=== PATIENT | female | born 1975 | race Caucasian/White ===

== ENCOUNTER 2021-04-01 22:53 | Inpatient (IN) | payer OTHER ==
[~2021-04-01] VITALS: Ht 162.6 cm; Wt 62.9 kg
[~2021-04-01 22:53] MED LIST: BACTRIM DS TAB1 EACH PO; CIPROFLOXACIN500 M1 PO; LEXAPRO 10 MG T10 M1; LORTAB 5 MG/5001 TAB PO; PYRIDIUM200 MG PO
[2021-04-01 22:55] VITALS: BP 136/91
[2021-04-01 23:33] LABS: URINE BILIRUBIN NEGATIVE (Negative); URINE BLOOD 2+ (Negative); URINE CLARITY CLEAR; URINE COLOR YELLOW; URINE GLUCOSE-RANDOM NEGATIVE (Negative); URINE KETONES NEGATIVE (Negative); URINE LEUKOCYTES-REFLEX NEGATIVE (Negative); URINE NITRITE-REFLEX NEGATIVE (Negative); URINE PROTEIN 1+ (Negative); URINE UROBILINOGEN 0.2 E.U./dl (0.2-1.0)
[2021-04-01 23:36] LABS: AMP/METHAMP Negative (Negative); BARBITURATES Negative (Negative); BENZODIAZEPINES Negative (Negative); COCAINE Negative (Negative); METHADONE Negative (Negative); OPIATES Negative (Negative); PCP Negative (Negative); THC Negative (Negative)
[2021-04-01 23:37] LABS: ABSOLUTE BASOPHILS 0.1 thou/uL (0.0-0.2); ABSOLUTE LYMPHOCYTES 2.6 thou/uL (0.8-5.3); ABSOLUTE MONOCYTES 0.4 thou/uL (0.0-1.2); ABSOLUTE NEUTROPHILS 4.6 thou/uL (1.6-8.1); BASOPHILS 1.2 %; EOSINOPHILS 0.1 %; HEMATOCRIT 42.7 % (37.0-47.0); HEMOGLOBIN 14.9 gm/dL (12.0-15.0); LYMPHOCYTES 33.7 %; MCH 34.9 pg (26.0-34.0); MCHC 34.9 g/dL (28.0-37.0); MCV 99.9 fL (80.0-100.0); MONOCYTES 5.7 %; MPV 5.8 fl. (7.2-11.1); NUCLEATED RBCS 0 /100WBC; PLATELET COUNT* 500 thou/uL (150-400); POLYS 59.3 %; RBC 4.28 mil/uL (4.20-5.00); WBC 7.7 thou/uL (4.0-11.0)
[2021-04-01 23:54] LABS: CREATININE 0.8 mg/dL (0.6-1.3); POTASSIUM 3.5 mmol/L (3.5-5.1)
[2021-04-02 00:04] LABS: ALBUMIN 3.8 g/dL (3.4-5.0); TOTAL BILIRUBIN 0.4 mg/dL (<0.1-1.0); TOTAL PROTEIN 8.2 g/dL (6.4-8.2)
[2021-04-02 00:16] LABS: CASTS None Seen /LPF (None Seen); SQUAMOUS 0-3 Few /LPF (0-3)
[2021-04-02 00:17] LABS: BACTERIA-REFLEX >30 Many /HPF (None Seen); CRYSTALS None Seen /LPF (None Seen); URINE RBC 0-2 Rare /HPF (0-2); URINE WBC-REFLEX 0-5 Rare /HPF (0-5)
[2021-04-02 01:09] LABS: BE -1.9 mmol/L (-2 to +3); PCO2 VENOUS 39.9 mmHg (41.0-51.0)
[2021-04-02 10:19] VITALS: BP 132/89
--- NOTE | 2021-04-02 10:26 | EKG ---
[place] [address] ELECTROCARDIOGRAM REPORT Name: ROSA ISELA HUDDLESTON Room: [place] [address] ADM IN [facility]#: [id number] Admission: 04/02/21 Attend Phys: Addison Chacon Discharge: Date of : 75 Date of Service: 04/01/21 2254 Report #: [id number] THIS REPORT FOR: //name// [facility] ED Test Date: 2021-04-01 Test Time: 22:54:00 Pat Name: ROSA ISELA HUDDLESTON Department: Room: [facility] Gender: F Etl Informatica Developer: TONY : 1975 Requested By: Adele Araya Order Number: [id number] MD: Dandre Trejo Measurements Intervals [place] Rate: 131 P: 67 WV: 133 QRS: -29 QRSD: 84 T: 75 QT: 300 QTc: 443 Interpretive Statements Sinus tachycardia Borderline left axis deviation ST elev, probable normal early repol pattern Baseline wander in lead(s) V1 No previous ECG available for comparison Electronically Signed On 04-02-2021 10:25:55 CHEMICAL PREPARER by Dandre Trejo [email or web address] <ELECTRONICALLY SIGNED> By: Dandre Trejo MD, FAC 04/02/21 1025 2254 2254 Dandre Trejo MD, [facility] /EPI
[2021-04-02 14:24] VITALS: BP 118/70
[2021-04-02 18:07] VITALS: BP 100/68
--- NOTE | 2021-04-02 21:44 | NUR ---
PATIENT INCONTINENT OF URINE. BED CHANGE COMPLETED. WILL CONTINUE TO MONITOR.
[2021-04-02 22:21] VITALS: BP 122/78
[2021-04-03] VITALS (7 sets, daily range): BP systolic 105–137; BP diastolic 65–98
[2021-04-03 11:07] LABS: ABSOLUTE BASOPHILS 0.1 thou/uL (0.0-0.2); ABSOLUTE LYMPHOCYTES 1.2 thou/uL (0.8-5.3); ABSOLUTE MONOCYTES 0.4 thou/uL (0.0-1.2); ABSOLUTE NEUTROPHILS 4.9 thou/uL (1.6-8.1); BASOPHILS 0.8 %; EOSINOPHILS 0.5 %; HEMATOCRIT 36.2 % (37.0-47.0); LYMPHOCYTES 17.6 %; MCH 34.4 pg (26.0-34.0); MCHC 35.1 g/dL (28.0-37.0); MONOCYTES 5.9 %; NUCLEATED RBCS 0 /100WBC; POLYS 75.2 %; RBC 3.69 mil/uL (4.20-5.00); RDW-CV 13.9 % (10.5-14.5); WBC 6.6 thou/uL (4.0-11.0)
[2021-04-03 11:15] LABS: CALCIUM 7.8 mg/dL (8.5-10.1); CREATININE 0.6 mg/dL (0.6-1.3)
[2021-04-03 11:17] LABS: POTASSIUM 2.9 mmol/L (3.5-5.1)
[2021-04-03 11:19] LABS: HEMOGLOBIN 12.7 gm/dL (12.0-15.0); PLATELET COUNT* 308 thou/uL (150-400)
[2021-04-03 11:20] LABS: ALBUMIN 2.9 g/dL (3.4-5.0); TOTAL PROTEIN 6.4 g/dL (6.4-8.2)
[2021-04-03 13:11] LABS: CALCIUM 7.8 mg/dL (8.5-10.1); CREATININE 0.6 mg/dL (0.6-1.3)
[2021-04-03 13:14] LABS: MAGNESIUM 1.4 mg/dL (1.8-2.4); PHOSPHORUS* 1.9 mg/dL (2.5-4.9)
[2021-04-03 13:17] LABS: POTASSIUM 2.9 mmol/L (3.5-5.1)
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
--- NOTE | 2021-04-03 18:36 | NUR ---
ASSUMED CARE AT 1030. PT IS ALERT AND ORIENTED. ASSESSMENT DONE. PT IS ON CIWA CHECK. PT HAS BEEN SCORING 2-3 ON CIWA. WILL CONTINUE TO PROVIDE CARE.
[2021-04-04 02:16] VITALS: BP 129/93
[2021-04-04 04:00] VITALS: BP 142/99
[2021-04-04 04:24] LABS: ABSOLUTE EOSINOPHILS 0.2 thou/uL (0.0-0.7); ABSOLUTE LYMPHOCYTES 1.5 thou/uL (0.8-5.3); ABSOLUTE MONOCYTES 0.3 thou/uL (0.0-1.2); ABSOLUTE NEUTROPHILS 3.4 thou/uL (1.6-8.1); BASOPHILS 0.9 %; EOSINOPHILS 3.3 %; HEMATOCRIT 35.9 % (37.0-47.0); HEMOGLOBIN 12.4 gm/dL (12.0-15.0); LYMPHOCYTES 27.1 %; MCH 34.5 pg (26.0-34.0); MCHC 34.5 g/dL (28.0-37.0); MCV 99.9 fL (80.0-100.0); MONOCYTES 5.4 %; MPV 6.4 fl. (7.2-11.1); NUCLEATED RBCS 0 /100WBC; PLATELET COUNT* 257 thou/uL (150-400); POLYS 63.3 %; RDW-CV 13.9 % (10.5-14.5); WBC 5.4 thou/uL (4.0-11.0)
[2021-04-04 04:49] LABS: ALBUMIN 2.9 g/dL (3.4-5.0); CALCIUM 8.2 mg/dL (8.5-10.1); CREATININE 0.6 mg/dL (0.6-1.3); POTASSIUM 3.6 mmol/L (3.5-5.1); TOTAL BILIRUBIN 0.9 mg/dL (<0.1-1.0); TOTAL PROTEIN 6.5 g/dL (6.4-8.2)
[2021-04-04 08:00] VITALS: BP 128/98
--- NOTE | 2021-04-04 08:29 | NUR ---
PATIENT HAS SLEPT WELL THROUGHOUT MOST OF THE NIGHT. VSS ON RA. MEDICATIONS GIVEN ORDERED AND CHARTED. PATIENT UP SBA TO THE BSC. CIWA 2. IV IN LEFT AC-D5 NS @ 80ML/HR. PATIENT INSTRUCTED TO USE CALL LIGHT WHEN NEEDING ASSISTANCE. HOURLY ROUNDS MADE. WILL CONTINUE WITH PLAN OF CARE AND NURSING TO MONITOR.
[2021-04-04] MEDS ORDERED: FOLIC ACID1 MG PO (12:31)
[2021-04-04] MEDS ORDERED: B-1100 MG PO (12:31)
--- NOTE | 2021-04-04 12:59 | NUR ---
Met with pt to discuss ETOH resources. Pt agreeable to receive. Provided a list of treatment centers and AA locations. Anticipate discharge home today. No other needs identified.
[2021-04-04] MEDS ORDERED: CARDIZEM30 MG PO (13:24)
[2021-04-04 16:55] VITALS: BP 146/102
[2021-04-04 16:57] VITALS: BP 146/102
--- NOTE | 2021-04-04 17:13 | EKG ---
[place] [address] ELECTROCARDIOGRAM REPORT Name: ROSA ISELA HUDDLESTON Room: [address] ADM [place] .R.#: [id number] Admission: 04/02/21 Attend Phys: Addison Chacon Discharge: Date of : 75 Date of Service: 04/04/21 1309 Report #: [id number] THIS REPORT FOR: //name// [facility] Test Date: 2021-04-04 Test Time: 13:09:34 Pat Name: ROSA ISELA HUDDLESTON Department: Room: [address] Gender: F Vertical Roll Operator: SUNITA : 1975 Requested By: Vargas Martell Order Number: [id number] Reading MD: Dandre Trejo Measurements Intervals [place] Rate: 134 P: 66 WI: 127 QRS: -19 QRSD: 81 T: 45 QT: 304 QTc: 454 Interpretive Statements Sinus tachycardia Borderline left axis deviation Low voltage, precordial leads Minimal ST depression, lateral leads Baseline wander in lead(s) II,III,aVR,aVF,V3,V4,V5,V6 Compared to ECG 04/01/2021 22:54:00 Low QRS voltage now present ST (T wave) deviation still present Electronically Signed On 04-04-2021 17:12:54 CHILD ABUSE WORKER by Dandre Trejo [email or web address] <ELECTRONICALLY SIGNED> By: Dandre Trejo MD, [facility] 04/04/21 1712 1309 1309 Dandre Trejo MD, [facility] /EPI
--- NOTE | 2021-04-04 17:24 | NUR ---
DISCHARGE ORDERS RECEIVED. DISCHARGE INSTRUCTIONS, CARE NOTES, E SCRIPTS AND FOLLOW UP APPTS GIVEN TO PT. PT COMMUNICATES UNDERSTANDING OF DISCHARGE TEACHING. IV AND MEDICAL SERVICES MANAGER REMOVED. PT DISCHARGED WITH ALL BELONGINGS AND PAPERWORK VIA WHEELCHAIR WITH NURSING STAFF TO FAMILY OWN PERSONAL VEHICLE.
== END 2021-04-04 17:25 | disposition home or self-care (01) | DRG 896 ==
LOC: M.ERS 22:53 → M.TBA-ER 04-02 04:35 → M.2W 04-02 04:35 → M.TBA-ER 04-02 23:48 → M.2W 04-03 11:11
PROVIDERS: Emergency Medicine; Internal Medicine; ADMIT Internal Medicine; ATTEND Internal Medicine
DX: F10.221 Alcohol dependence with intoxication delirium (principal); G92.8 Other toxic encephalopathy; E87.6 Hypokalemia; F10.231 Alcohol dependence with withdrawal delirium; Z20.822 Contact with and (suspected) exposure to COVID-19; Y90.0 Blood alcohol level of less than 20 mg/100 ml; K75.9 Inflammatory liver disease, unspecified

== ENCOUNTER 2021-05-14 11:42 | Emergency (ER) | payer OTHER ==
[~2021-05-14] VITALS: Ht 172.7 cm; Wt 62.6 kg
[~2021-05-14 11:42] MED LIST changes: +B-1100 MG PO; +CARDIZEM30 MG PO; +FOLIC ACID1 MG PO
[2021-05-14 12:10] LABS: ABSOLUTE BASOPHILS 0.1 thou/uL (0.0-0.2); ABSOLUTE LYMPHOCYTES 3.3 thou/uL (0.8-5.3); ABSOLUTE MONOCYTES 0.5 thou/uL (0.0-1.2); ABSOLUTE NEUTROPHILS 4.7 thou/uL (1.6-8.1); EOSINOPHILS 0.2 %; HEMATOCRIT 46.6 % (37.0-47.0); HEMOGLOBIN 16.1 gm/dL (12.0-15.0); MCH 33.5 pg (26.0-34.0); MCHC 34.4 g/dL (28.0-37.0); MCV 97.2 fL (80.0-100.0); MONOCYTES 6.2 %; MPV 6.1 fl. (7.2-11.1); NUCLEATED RBCS 0 /100WBC; PLATELET COUNT* 402 thou/uL (150-400); POLYS 54.6 %; RDW-CV 12.7 % (10.5-14.5); WBC 8.7 thou/uL (4.0-11.0)
[2021-05-14 12:31] LABS: CALCIUM 8.1 mg/dL (8.5-10.1); CREATININE 0.6 mg/dL (0.6-1.3); POTASSIUM 3.5 mmol/L (3.5-5.1)
[2021-05-14 12:36] LABS: ALBUMIN 4.2 g/dL (3.4-5.0); TOTAL BILIRUBIN 0.7 mg/dL (<0.1-1.0); TOTAL PROTEIN 8.2 g/dL (6.4-8.2)
[2021-05-14 12:38] LABS: SALICYLATE < 2.8 mg/dL (2.8-20.0)
[2021-05-14 12:40] LABS: ACETAMINOPHEN < 2 ug/mL (10-30)
[2021-05-14 12:42] LABS: ALCOHOL 564 mg/dL (<10)
--- NOTE | 2021-05-14 13:27 | EKG ---
[place] [id number] ELECTROCARDIOGRAM REPORT Name: ROSA ISELA HUDDLESTON Room: [facility].R.#: [id number] Admission: Attend Phys: Discharge: Date of : 75 Date of Service: 05/14/21 1149 Report #: [id number] THIS REPORT FOR: //name// [facility] ED Test Date: 2021-05-14 Test Time: 11:49:35 Pat Name: ROSA ISELA HUDDLESTON Department: Room: Gender: F Internal Combustion Engine Inspector: JOSE ELIAS : 1975 Requested By: Jese Hart Order Number: [id number] MD: Dandre Trejo Measurements Intervals [place] Rate: 129 P: 62 WA: 126 QRS: -8 QRSD: 88 T: 68 QT: 315 QTc: 462 Interpretive Statements Sinus tachycardia ST elev, probable normal early repol pattern Compared to ECG 04/04/2021 13:09:34 No significant changes Electronically Signed On 05-14-2021 13:27:10 STEEL ROLLER by Dandre Trejo [email or web address] <ELECTRONICALLY SIGNED> By: Dandre Trejo MD, [facility] 05/14/21 1327 1149 1149 Dandre Trejo MD, FAC /EPI
[2021-05-14] MEDS ORDERED: ATIVAN1 M1 PO (16:59)
[2021-05-14 17:30] VITALS: BP 132/91
== END 2021-05-14 17:31 | disposition home or self-care (01) ==
LOC: M.ERS 11:42
PROVIDERS: Family Medicine
DX: F10.129 Alcohol abuse with intoxication, unspecified (principal); Z79.899 Other long term (current) drug therapy; Y90.8 Blood alcohol level of 240 mg/100 ml or more